=== PATIENT | male | born 1995 | race Hispanic/Latino ===

== ENCOUNTER 2019-06-13 15:19 | Emergency (ER) | payer SELFPAY ==
[2019-06-13] MEDS ORDERED: Bacitracin 1 PK ONE (16:08)
[2019-06-13] MEDS ORDERED: Adacel (T-DAP) 0.5 ML SYRINGE ONE (16:08)
== END 2019-06-13 16:17 | disposition home or self-care (01) ==
LOC: SCSER 15:19
DX: S91.331A Puncture wound without foreign body, right foot, initial encounter (principal); L03.115 Cellulitis of right lower limb; F17.210 Nicotine dependence, cigarettes, uncomplicated; W31.9XXA Contact with unspecified machinery, initial encounter
CPT/HCPCS: 87070; 87205; 90715; 99283